=== PATIENT | male | born 1990 | race African-American/Black ===

== ENCOUNTER → 2018-05-24 17:54 | Outpatient (CLI) | payer OTHER, SELFPAY ==
--- NOTE | 2018-05-24 17:57 | DI.RAD.S_ITS ---
PROCEDURE: XR ANKLE RT MIN 3V INDICATIONS: fall TECHNIQUE: 3 views of the ankle were acquired. COMPARISON: None. FINDINGS: Bones: There is a slightly displaced fracture in the posterior malleolus. A small fracture fragment is also noted in the medial malleolus. Ankle mortise is normally aligned. No suspicious bony lesions. Soft tissues: Small tibiotalar joint effusion. Achilles tendon appears normal. IMPRESSION: Posterior malleolar and medial malleolar fractures. Dictated by: Lynda Pablo M.D. on 05/24/2018 at 19:02 Approved by: Lynda Pablo M.D. on 05/24/2018 at 19:04
--- NOTE | 2018-05-24 17:57 | DI.RAD.S_ITS ---
PROCEDURE: XR FOOT RT MIN 3V INDICATIONS: fall TECHNIQUE: 3 views of the foot were acquired. COMPARISON: [facility], CR, XR ANKLE RT MIN 3V, 05/24/2018, 17:41. FINDINGS: Bones: No fracture in the right foot. There is a posterior malleolar fracture, and a medial malleolar fracture, as seen on the ankle radiographs. No suspicious bony lesions. Calcaneal spurring. Soft tissues: No tibiotalar joint effusion. Achilles tendon appears normal. IMPRESSION: No fracture in right foot. Please see ankle x-ray report for description of posterior and medial malleolar fractures. Dictated by: Lynda Pablo M.D. on 05/24/2018 at 19:04 Approved by: Lynda Pablo M.D. on 05/24/2018 at 19:07
== END ==
PROVIDERS: Visit Provider Physician Assistant
DX: S82.841A Displaced bimalleolar fracture of right lower leg, initial encounter for closed fracture (principal); M79.671 Pain in right foot
CPT/HCPCS: 73610; 73630